=== PATIENT | male | born 1975 ===

== ENCOUNTER → 2023-12-08 06:30 | Outpatient (CLI) | payer OTHER ==
[2023-12-08 08:05] LABS: PH,URINE 5.5 (5.0-8.0); URINE APPEARANCE Clear; URINE BILIRRUBIN Negative (NEGATIVE); URINE BLOOD Negative; URINE COLOR Yellow; URINE GLUCOSE Negative (NEGATIVE); URINE LEUKOCYTE Negative; URINE NITRATE Negative; URINE PROTEIN Negative (NEGATIVE)
[2023-12-08 08:07] LABS: URINE EPITHELIAL CELLS 4.3 uL (0.0-38.8); URINE RBC 2.5 uL (0.0-20.8); URINE WBC 1.8 uL (0.0-23.2)
[2023-12-08 08:23] LABS: HEMATOCRIT 44.1 % (39.0-48.0); HEMOGLOBIN 15.2 g/dL (13-16.00); MEAN CELL VOLUME 90.1 fL (80.0-100.00); MEAN CORPUSCULAR HGB CONC 34.4 g/dl (32.0-36.0); PLATELET COUNT 201 K/uL (150-450); RED CELL DISTRIBUTION WIDTH 13.1 % (11.5-14.5)
[2023-12-08 09:03] LABS: ALBUMIN 4.3 gm/dL (3.4-5.0); BILIRUBIN TOTAL 0.43 mg/dL (0.3-1.2); BILIRUBIN,CONJUGATED 0.1 mg/dL (0.0-0.2); BILIRUBIN,UNCONJUGATED 0.33 mg/dL (0.0-0.6); CALCIUM 8.9 mg/dL (8.5-10.1); CHOL HDL RATIO 4.9 (0-5.0); CREATININE SERUM 1.15 mg/dL (0.70-1.30); GFR 68.46; GLOBULINA 2.9 G/DL (2.4-3.5); POTASSIUM 3.42 mEq/L (3.5-5.1); PROSTATIC SPECIFIC ANTIGEN 1.1 NG/ML (0.010-4.00); TOTAL PROTEIN 7.2 gm/dL (6.4-8.2); TSH 2.66 uIU/mL (0.358-3.74)
[2023-12-09 10:11] LABS: hav igm Negative (Negative); hcv Non Reactive (Non Reactive); hep b c Negative (Negative)
[2023-12-10 00:06] LABS: chla t Negative (Negative); neiss Negative (Negative)
== END | disposition home or self-care (01) ==
LOC: LAB 06:30
DX: Z13.1 Encounter for screening for diabetes mellitus (principal); Z13.220 Encounter for screening for lipoid disorders; Z13.0 Encounter for screening for diseases of the blood and blood-forming organs and certain disorders involving the immune mechanism; Z13.29 Encounter for screening for other suspected endocrine disorder; Z12.11 Encounter for screening for malignant neoplasm of colon; Z11.9 Encounter for screening for infectious and parasitic diseases, unspecified; Z13.21 Encounter for screening for nutritional disorder; Z12.5 Encounter for screening for malignant neoplasm of prostate